=== PATIENT | male | born 1985 | race Caucasian/White ===

== ENCOUNTER → 2017-08-22 | Outpatient (REF) | LOC: AUD 10:49 | PROVIDERS: ATTEND Internal Medicine | DX: Z01.10 Encounter for examination of ears and hearing without abnormal findings (principal) | CPT/HCPCS: 92552 ==

== ENCOUNTER → 2018-09-08 | Outpatient (REF) | LOC: AUD 08:45 | PROVIDERS: ATTEND Internal Medicine | DX: Z01.12 Encounter for hearing conservation and treatment (principal) | CPT/HCPCS: 92552 ==